=== PATIENT | female | born 1990 | race Caucasian/White ===

== ENCOUNTER 2017-02-12 15:46 | Outpatient (CLI) | payer OTHER ==
[~2017-02-12] VITALS: Ht 152.4 cm; Wt 86.0 kg
[~2017-02-12 15:46] MED LIST: ACET-2158 GTB; DOCO200C5 PO; FERR-55 PO; PREN1TAB62 PO
[2017-02-12 15:50] VITALS: Ht 152.4 cm; Wt 86.0 kg
--- NOTE | 2017-02-12 16:30 | RADRPT ---
PROCEDURE: US OB. CLINICAL INDICATION: Low TANVI , pain TECHNIQUE: Transabdominal views of the pelvis are available for review. COMPARISON: No prior studies are available for comparison. FINDINGS: There is a single intrauterine gestation in a vertex position. The heart rate is noted at 138 bpm. The placenta is posterior. The MVP measures 5.5 cm. RPTAT: AA IMPRESSION: Normal MVP. .Wang Mcpherson MD, MD Date Time Electronically viewed and signed by .Wang Mcpherson MD, on 02/12/2017 16:29 .S/
[2017-02-12 17:34] LABS: ADD UMIC YES; URINE BILIRUBIN (Dip) NEGATIVE (NEGATIVE); URINE BLOOD (Dip) NEGATIVE (NEGATIVE); URINE COLOR LT. YELLOW (YELLOW); URINE GLUCOSE (Dip) NEGATIVE (NEGATIVE); URINE KETONES (Dip) NEGATIVE (NEGATIVE); URINE LEUKOCYTE ESTERASE (Dip) 2+ (NEGATIVE); URINE NITRITE (Dip) NEGATIVE (NEGATIVE); URINE TOTAL PROTEIN (Dip) NEGATIVE (NEGATIVE); URINE UROBILINOGEN (Dip) 0.2 E.U./dL (0.1-1.0)
[2017-02-12] MEDS ORDERED: LACTATED RINGER'S 1,000 ML IV SCH (17:34)
[2017-02-12 17:48] LABS: BACTERIA,URINE FEW; SQUAMOUS EPITHELIAL CELL,UR MODERATE; URINE RBCS 0-2 /HPF (0)
--- NOTE | 2017-02-12 18:22 | CONS ---
Date/Time of Note Date/Time of Note DATE: 02/12/17 TIME: 18:15 Consultation Date/Type/Reason Admit Date/Time February 12, 2017 OB triage consult Reason for Consultation 4 para 1 premature entry with estimated date of confinement of June 10, 2017 Which makes her 23 weeks and 1 day today. . She came in complaining of low movement as well as low back pain On general examination she is a well-developed well-nourished lady midterm abdomen is soft basically no contractions her vital signs appears to be in normal limit with blood pressure 112/62 pulse rate 82 respiration 20 temperature 97.9 and heart rate running around 145 A urine analysis was performed which showed 2+ leukoesterase on examination this patient had slight left CVA tenderness on the ultrasound study the report was a single intrauterine gestation in vertex presentation heart tones 128 bpm and placenta was posterior MVP was 5.5 cm Laboratory Tests Test 02/12/17 16:03 Urine Color LT. YELLOW Urine Clarity CLEAR Urine pH 6.0 Urine Specific [place] 1.020 Urine Ketones NEGATIVE Urine Nitrite NEGATIVE Urine Bilirubin NEGATIVE Urine Urobilinogen 0.2 E.U./dL Urine Leukocyte Esterase 2+ Urine Microscopic RBC 0-2/HPF Urine Microscopic WBC 5-10/HPF Urine Squamous Epithelial Cells MODERATE Urine Bacteria FEW Urine Hemoglobin NEGATIVE Urine Glucose NEGATIVE% Urine Total Protein NEGATIVE Current Medications Medications (Trade) Dose Ordered Sig/Fernanda Route PRN Reason Start Time Stop Time Status Last Admin Dose Admin Lactated Ringer's (Lr) 1,000 ml @ 125 mls/hr Q8H IV 02/12/17 17:34 02/12/17 17:00 125 MLS/HR Constitutional: No chills, No diaphoresis, No disoriented, No febrile, No improved, No no complaints, No other, No poor po, No requiring IVF, No requiring O2 Respiratory: No cough, No no complaints, No other, No pain, No pleuritic pain, No shortness of breath, No sputum, No wheezing Cardiovascular: No chest pain, No edema, No lightheadedness, No no complaints, No orthopenea, No other, No palpitations, No paroxysmal nocturnal dyspnea Gastrointestinal: No blood, No constipation, No decreased appetite, No diarrhea , No flatus, No nausea, No no complaints, No other, No pain, No passing stool, No vomiting Genitourinary: flank pain (Left costovertebral angle tenderness), other (No dysuria), No bleeding, No discharge, No dysuria, No hematuria, No no complaints Musculoskeletal: No back pain, No bone/joint pain, No neck pain, No no complaints, No other, No restricted range of motion, No swelling Skin: No bruising, No erythema, No laceration, No no complaints, No other, No pruritis, No rash, No skin lesions Neurologic: No confusion, No dizziness, No focal-weakness, No headache, No no complaints, No other, No seizure, No syncope Additional Comments With these findings with the diagnosis of a urinary tract infection patient was given Macrobid tablet 100 mg #20 to be taken 1 every 12 hours Urine was sent for culture and sensitivity and she was advised to check with her physician for the result of the urinalysis and culture sensitivity for possible change of antibiotic Social History Smoking Status: Never smoker Exam/Review of Systems Results Results 24 hrs Laboratory Tests Test 02/12/17 16:03 Urine Color LT. YELLOW Urine Clarity CLEAR Urine pH 6.0 Urine Specific [place] 1.020 Urine Ketones NEGATIVE Urine Nitrite NEGATIVE Urine Bilirubin NEGATIVE Urine Urobilinogen 0.2 E.U./dL Urine Leukocyte Esterase 2+ H Urine Microscopic RBC 0-2 Urine Microscopic WBC 5-10 Urine Squamous Epithelial Cells MODERATE Urine Bacteria FEW Urine Hemoglobin NEGATIVE Urine Glucose NEGATIVE Urine Total Protein NEGATIVE Medications Medications Current Medications Lactated Ringer's (Lr) 1,000 ml @ 125 mls/hr Q8H IV Last administered on t 17:00; Admin Dose 125 MLS/HR; Start 02/12/17 at 17:34 DIMITRI ANAYA MD February 12, 2017 18:22
[2017-02-12] MEDS ORDERED: NITR-58 PO (18:27)
--- NOTE | 2017-02-12 19:36 | TRIAGE ---
OB Triage Datetime Report Generated by CPN: 02/12/2017 19:36 Datetime: 02/12/2017 16:00 Stage of : OB Triage Maternal Assessment Level of Consciousness: Fully Conscious DTR's/Clonus: DTRs 2+; No Clonus Headache: Denies Blurred Vision: No Respiratory Effort: Unlabored; Regular Rhythm; Equal Expansion Breath Sounds, Left: Clear and Equal Breath Sounds, Right: Clear and Equal Nausea/Vomiting: Denies RUQ Epigastric Pain: Denies Lower Extremities Edema: None Degree: None Upper Extremities Edema: None Degree: None Facial Edema: None Temperature Route: Axillary Fall Risk Assessment History of Falling: (0) No Secondary Diagnosis: (0) No Ambulatory Aid: (0) Bedrest/Nurse Assist IV Therapy: (0) No Gait: (0) Normal/Bedrest/Immobile Mental Status: (0) Oriented to Own Ability Fall Score: 0 Fall Risk Score Definition: No Risk: No action required Datetime: 02/12/2017 15:57 EGA: 23.1 Datetime: 02/12/2017 15:56 Time of Arrival: 02/12/2017 15:45 Arrived By: Ambulatory Arrived From: Home Chief Complaint: DECREASED FM, LOW BACK PAIN Movement: Present Contractions: Denies/Absent Rupture of Membranes: Denies Vaginal Bleeding: None Vaginal Discharge: Denies Recent Sexual Intercouse: Yes Abdominal Trauma: Not Applicable Patient Complaints: Cramping; Back Pain Time Provider Notified: 02/12/2017 16:00 Provider Notified: DR. MANE Initial Plan: NST, TANVI, UA
== END 2017-02-12 18:45 | disposition home or self-care (01) ==
LOC: OBT 15:46 → L-D 15:47 → OBT 18:45
PROVIDERS: ATTEND Obstetrics & Gynecology
DX: O23.42 Unspecified infection of urinary tract in pregnancy, second trimester (principal); O36.8120 Decreased fetal movements, second trimester, not applicable or unspecified; O26.891 Other specified pregnancy related conditions, first trimester; M54.5 Low back pain; Z3A.23 23 weeks gestation of pregnancy
CPT/HCPCS: 76815; 81001; 87086; 96372; J7120; Z7500; 81003; G0463

== ENCOUNTER 2017-04-30 14:44 | Inpatient (IN) | payer OTHER ==
[~2017-04-30] VITALS: Ht 152.4 cm; Wt 95.7 kg
[~2017-04-30 14:44] MED LIST changes: -ACET-2158 GTB; -DOCO200C5 PO; +NITR-58 PO
[2017-04-30 15:04] VITALS: Ht 152.4 cm; Wt 95.7 kg
[2017-04-30 15:05] VITALS: BP 132/80; PULSE 108
--- NOTE | 2017-04-30 16:00 | RADRPT ---
PROCEDURE: OB ultrasound for biophysical profile CLINICAL INDICATION: Decreased movements. Biophysical profile. . TECHNIQUE: Multiple sonographic images of the pelvis were obtained. Transabdominal view of the gr avid uterus are available for review. The images were reviewed on a PACS workstation. COMPARISON: 02/12/2017 FINDINGS: breathing movement = 2/2 tone = 2/2 motion = 2/2 TANVI = 2/2 Single intrauterine gestation is identified in cephalic position. heart rate is 141 bpm. Plac enta is posterior fundal without evidence for abruption or previa. TANVI measures 11.8 cm, within nor mal limits. IMPRESSION: 1. Single live intrauterine gestation. 2. Biophysical profile = 8. 3. TANVI = 11.8 cm. RPTAT: EE .Azael Boudreaux MD, MD Date Time Electronically viewed and signed by .Azael Boudreaux MD, on 04/30/2017 16:00 .R/
[2017-04-30 16:20] LABS: BASOPHILS % 0.1 % (0.0-2.0); EOSINOPHILS % 0.3 % (0.0-7.0); HEMATOCRIT 31.5 % (37.0-47.0); HEMOGLOBIN 10.9 g/dl (12.0-16.0); LYMPHOCYTES # 1.3 10^3/ul (0.8-2.9); LYMPHOCYTES % 12.5 % (15.0-51.0); MEAN CORPUSCULAR HEMOGLOBIN 30.2 pg (29.0-33.0); MEAN CORPUSCULAR HGB CONC 34.6 g/dl (32.0-37.0); MEAN CORPUSCULAR VOLUME 87.3 fl (82.0-101.0); MEAN PLATELET VOLUME 10.9 fl (7.4-10.4); MONOCYTE # 0.4 10^3/ul (0.3-0.9); MONOCYTES % 3.4 % (0.0-11.0); NEUTROPHIL # 8.8 10^3/ul (1.6-7.5); NEUTROPHILS % 83.1 % (39.0-77.0); PLATELET COUNT 238 10^3/UL (140-415); RED BLOOD COUNT 3.61 10^6/ul (4.20-5.40); RED CELL DISTRIBUTION WIDTH 13.5 % (11.5-14.5); WHITE BLOOD COUNT 10.5 10^3/ul (4.8-10.8)
[2017-04-30] MEDS: LACTATED RINGER'S 1,000 ML IV SCH (16:27)
[2017-04-30] MEDS ORDERED: TERBUTALINE 1 MG/ML INJ SC ONE ×2 (16:30→18:00)
[2017-04-30 16:43] LABS: ALBUMIN 3.8 g/dl (3.3-4.9); ALBUMIN/GLOBULIN RATIO 1.18; BILIRUBIN,INDIRECT 0.1 mg/dl (0-1.1); BILIRUBIN,TOTAL 0.1 mg/dl (0.2-1.3); CALCIUM 8.7 mg/dl (8.4-10.2); CREATININE 0.52 mg/dl (0.44-1.00); POTASSIUM 3.5 mmol/L (3.5-5.1)
[2017-04-30 17:14] LABS: ADD UMIC YES; UR ASCORBIC ACID 40 mg/dL (NEGATIVE); UR BILIRUBIN (Dip) NEGATIVE (NEGATIVE); UR BLOOD (Dip) NEGATIVE (NEGATIVE); UR CLARITY CLOUDY (CLEAR); UR COLOR AMBER (YELLOW); UR GLUCOSE (Dip) NEGATIVE (NEGATIVE); UR KETONES (Dip) 1+ mg/dL (NEGATIVE); UR LEUKOCYTE ESTERASE (Dip) TRACE Leu/ul (NEGATIVE); UR MUCUS MODERATE /HPF (NONE SEEN); UR NITRITE (Dip) NEGATIVE (NEGATIVE); UR RBC 4 /HPF (0-5); UR SPECIFIC GRAVITY (Dip) 1.035 (1.003-1.030); UR SQUAMOUS EPITHELIAL CELL FEW /HPF (FEW); UR TOTAL PROTEIN (Dip) 2+ mg/dl (NEGATIVE); UR UROBILINOGEN (Dip) NEGATIVE (NEGATIVE)
[2017-04-30 21:25] LABS: INR 1.04; PROTIME 13.6 Sec (12.2-14.2); PT RATIO 1.1
[2017-04-30 21:26] LABS: PARTIAL THROMBOPLASTIN TIME 28.3 Sec (25.0-35.0)
[2017-04-30] MEDS ORDERED: ACETAMINOPHEN 325 MG TAB PO ONE (22:00)
[2017-04-30] MEDS: BETAMET NA PHOS/AC(6 MG/ML) 5ML INJ IM SCH (22:55)
--- NOTE | 2017-05-01 00:38 | HP ---
Date/Time of Note Date/Time of Note DATE: 05/01/17 TIME: 00:20 OB - History Hx of Present Free Text/Dictation 26y. o A1 who had 3c/s at 34w1d wit c/o DFM for 1day and c/o Nausea and vomit and headache. EFM revealed UC q5min IV hydration done ,terbutaline X1 given BP 130-140/70-85 , previous BP was 104/69 with ++ protein in urine BPP 8/ TANVI 11.8 PIH lab wnl admitted to antepartum for observation and further evaluation for PIH 24hr urine collection for protein and creatinine ordered X2 bmz will be given paola consult Chief Complaint: DFM n&v headache Estimated Due Date: Jun 10, 2017 : 5 Para: 3 Spontaneous : 1 Therapeutic : 0 Care: Limited Care Ultrasounds: Normal mid trimester US Obstetrical Complications: Gestational Hypertension Medical Complications: None Past Family/Social History * Past Medical, Surgical, Family and Obstetric Histories reviewed from chart. Blood Type: O+ Rubella: immune RPR/VDRL: Negative GBS Status: Unknown HBsAG: Negative OB Admission Exam Vital Signs Vital Signs Vital Signs Date Time Temp Pulse Resp B/P Pulse Ox O2 Delivery O2 Flow Rate FiO2 04/30/17 15:05 98.1 108 132/80 Physical Exam HEENT: WNL Heart: Rhythm Normal Lungs: Clear, Equal Abdomen: WNL Extremities: Normal Reflexes: Normal Cervical Dilatation: other Effacement: Other Station: Other Membranes: Intact Amniotic Fluid: Unevaluable Heart Rate: 130's Accelerations: Accelerations Present Decelerations: No Decelerations Varibility: Moderate Contractions on Admission: < 5 Minutes Apart Intensity: Mild Last 72 hours Lab Results CBC & BMP 04/30/17 15:45 Liver Function Test 04/30/17 15:45 Alanine Aminotransferase (ALT/SGPT) 20 Albumin 3.8 Alkaline Phosphatase 166 H Aspartate Amino Transf (AST/SGOT) 14 L Direct Bilirubin 0.00 Total Protein 7.0 OB Assessment/Plan Reason for admission: other Other Assessment: IUP 34w1d gestational hypertension Plan: Other (as ordered) Other plan: periconsult NIK RAMON MD May 01, 2017 00:33
[2017-05-01] MEDS: LACTATED RINGER'S 1,000 ML IV SCH ×3 (00:56→23:35)
[2017-05-01] MEDS ORDERED: MAGNESIUM SULFATE 4 GM/100 ML 100 ML IV ONE (01:30)
[2017-05-01] MEDS: MAGNESIUM SULFATE 20 GM/500 ML 500 ML IV SCH ×2 (02:46→11:42)
[2017-05-01] MEDS ORDERED: ACETAMINOPHEN 325 MG TAB PO PRN (08:00)
[2017-05-01] MEDS: PRENATAL VITAMIN PO SCH (10:00)
[2017-05-01] MEDS: DOCUSATE SODIUM 100 MG CAP PO SCH (10:09)
--- NOTE | 2017-05-01 10:19 | QN ---
Documentation Comment resting in bed bp running in 130s/high 80s,no head ache no blurry vision no epigastric pain ,on mag 2gm q1 h, received btz first dose , Laboratory Tests Test 04/30/17 15:45 04/30/17 16:30 04/30/17 20:20 05/01/17 05:52 White Blood Count 10.510^3/ul Red Blood Count 3.6110^6/ul Hemoglobin 10.9g/dl Hematocrit 31.5% Mean Corpuscular Volume 87.3fl Mean Corpuscular Hemoglobin 30.2pg Mean Corpuscular Hemoglobin Concent 34.6g/dl Red Cell Distribution Width 13.5% Platelet Count 09688^3/UL Mean Platelet Volume 10.9fl Neutrophils % 83.1% Lymphocytes % 12.5% Monocytes % 3.4% Eosinophils % 0.3% Basophils % 0.1% Nucleated Red Blood Cells % 0.0/100WBC Neutrophils # 8.810^3/ul Lymphocytes # 1.310^3/ul Monocytes # 0.410^3/ul Eosinophils # 0.010^3/ul Basophils # 0.010^3/ul Nucleated Red Blood Cells # 0.010^3/ul Sodium Level 139mmol/L Potassium Level 3.5mmol/L Chloride Level 107mmol/L Carbon Dioxide Level 19mmol/L Anion Gap 17 Blood Urea Nitrogen 9mg/dl Creatinine 0.52mg/dl Glucose Level 82mg/dl Calcium Level 8.7mg/dl Total Bilirubin 0.1mg/dl Direct Bilirubin 0.00mg/dl Indirect Bilirubin 0.1mg/dl Aspartate Amino Transf (AST/SGOT) 14IU/L Alanine Aminotransferase (ALT/SGPT) 20IU/L Alkaline Phosphatase 166IU/L Total Protein 7.0g/dl Albumin 3.8g/dl Globulin 3.20g/dl Albumin/Globulin Ratio 1.18 Urine Color DONNA Urine Clarity CLOUDY Urine pH 5.0 Urine Specific [place] 1.035 Urine Ketones 1+mg/dL Urine Nitrite NEGATIVEmg/dL Urine Bilirubin NEGATIVEmg/dL Urine Urobilinogen NEGATIVEmg/dL Urine Leukocyte Esterase TRACELeu/ul Urine Microscopic RBC 4/HPF Urine Microscopic WBC 1/HPF Urine Squamous Epithelial Cells FEW/HPF Urine Calcium Oxalate Crystals MANY/HPF Urine Mucus MODERATE/HPF Urine Hemoglobin NEGATIVEmg/dL Urine Glucose NEGATIVEmg/dL Urine Total Protein 2+mg/dl Prothrombin Time 13.6Sec Prothrombin Time Ratio 1.1 INR International Normalized Ratio 1.04 Activated Partial Thromboplast Time 28.3Sec Fibrinogen 517.0mg/dl Uric Acid 4.1mg/dl Magnesium Level 4.1mg/dl Current Medications Medications (Trade) Dose Ordered Sig/Fernanda Route PRN Reason Start Time Stop Time Status Last Admin Dose Admin Lactated Ringer's (Lr) 1,000 ml @ 75 mls/hr [id number] IV 04/30/17 16:30 05/01/17 00:56 Terbutaline Sulfate (Brethine) 0.25 mg ONCE ONCE SC 04/30/17 16:30 04/30/17 16:31 DC 04/30/17 16:27 Terbutaline Sulfate (Brethine) 0.25 mg ONCE ONCE SC 04/30/17 18:00 04/30/17 18:01 DC 04/30/17 17:59 Prenat Multivit/ [place]/Iron/Folic Ac () 1 tab DAILY PO 05/01/17 09:00 Docusate Sodium (Colace) 100 mg DAILY PO 05/01/17 09:00 05/01/17 10:09 Acetaminophen (Tylenol Tab) 650 mg ONCE ONCE PO 04/30/17 22:00 04/30/17 22:05 DC 04/30/17 22:08 Betamethasone Acet/Betameth SodPhos 12 mg 12 mg Q24H IM 04/30/17 22:00 05/01/17 22:01 04/30/17 22:55 Magnesium Sulfate 100 ml @ 200 mls/hr ONCE ONCE IV 05/01/17 01:30 05/01/17 01:59 DC 05/01/17 02:01 Magnesium Sulfate (Magnesium Sulfate 20 Gm/500 ml) 500 ml @ 50 mls/hr Q10H IV 05/01/17 02:00 05/01/17 02:46 Acetaminophen (Tylenol Tab) 650 mg Q4H PRN PO PAIN AND OR ELEVATED TEMP 05/01/17 08:00 05/01/17 07:50 24 hours urine in progress ,paola consult requested EJRARDO PATE MD May 01, 2017 10:19
[2017-05-01] MEDS ORDERED: AL HYDROX/MG HYDROX/SIMETH 30 ML CUP PO PRN (17:00)
[2017-05-01] MEDS: BETAMET NA PHOS/AC(6 MG/ML) 5ML INJ IM SCH (22:29)
[2017-05-02] VITALS (12 sets, daily range): BP systolic 103–127; BP diastolic 57–71; PULSE 71–93; RESP 17–18
[2017-05-02 03:26] LABS: SCRET 0.52 mg/dl (0.44-1.00)
[2017-05-02] MEDS: PRENATAL VITAMIN PO SCH (09:24)
[2017-05-02] MEDS: DOCUSATE SODIUM 100 MG CAP PO SCH (09:25)
[2017-05-02] MEDS ORDERED: LACTATED RINGER'S 1,000 ML IV SCH (11:29)
[2017-05-02] MEDS ORDERED: METHYLERGONOVINE 0.2 MG INJ IM PRN ×3 (11:30→17:30)
[2017-05-02] MEDS ORDERED: OXYTOCIN 30 UNITS/LR 500 ML IV PRN ×3 (11:30→17:30)
[2017-05-02] MEDS ORDERED: CEFAZOLIN 2 GM/50 ML (PMX) 50 ML IV SCH (11:30)
[2017-05-02] MEDS ORDERED: CARBOPROST 250 MCG INJ IM PRN ×3 (11:30→17:30)
[2017-05-02] MEDS ORDERED: MISOPROSTOL 200 MCG TAB PR PRN ×3 (11:30→17:30)
[2017-05-02] MEDS ORDERED: OXYTOCIN 30 UNITS/LR 500 ML IV SCH ×2 (11:30→17:13)
[2017-05-02 12:00] LABS: BASOPHILS % 0.1 % (0.0-2.0); HEMATOCRIT 29.6 % (37.0-47.0); HEMOGLOBIN 10.1 g/dl (12.0-16.0); LYMPHOCYTES % 13.8 % (15.0-51.0); MEAN CORPUSCULAR HEMOGLOBIN 30.7 pg (29.0-33.0); MEAN CORPUSCULAR HGB CONC 34.1 g/dl (32.0-37.0); MEAN PLATELET VOLUME 10.6 fl (7.4-10.4); MONOCYTE # 0.5 10^3/ul (0.3-0.9); MONOCYTES % 6.5 % (0.0-11.0); NEUTROPHIL # 5.8 10^3/ul (1.6-7.5); PLATELET COUNT 219 10^3/UL (140-415); RED BLOOD COUNT 3.29 10^6/ul (4.20-5.40); WHITE BLOOD COUNT 7.4 10^3/ul (4.8-10.8)
[2017-05-02] MEDS ORDERED: MAGNESIUM SULFATE 4 GM/100 ML 100 ML IV SCH (12:00)
[2017-05-02 12:19] LABS: ALANINE AMINOTRANSFERASE 23 IU/L (13-69); ALBUMIN 3.6 g/dl (3.3-4.9); ALBUMIN/GLOBULIN RATIO 1.12; ALKALINE PHOSPHATASE 130 IU/L (42-121); ANION GAP 16 (8-16); ASPARTATE AMINO TRANSFERASE 12 IU/L (15-46); BILIRUBIN,INDIRECT 0.1 mg/dl (0-1.1); BILIRUBIN,TOTAL 0.1 mg/dl (0.2-1.3); BLOOD UREA NITROGEN 12 mg/dl (7-20); CALCIUM 9.1 mg/dl (8.4-10.2); CARBON DIOXIDE 24 mmol/L (21-31); CHLORIDE 104 mmol/L (97-110); CREATININE 0.62 mg/dl (0.44-1.00); GLUCOSE 109 mg/dl (70-220); INR 0.94; POTASSIUM 4.3 mmol/L (3.5-5.1); PROTIME 12.6 Sec (12.2-14.2); SODIUM 140 mmol/L (135-144); TOTAL PROTEIN 6.8 g/dl (6.1-8.1)
[2017-05-02 12:20] LABS: PARTIAL THROMBOPLASTIN TIME 26.6 Sec (25.0-35.0)
[2017-05-02] MEDS ORDERED: LACTATED RINGER'S 1,000 ML IV ONE (12:24)
[2017-05-02] MEDS ORDERED: METOCLOPRAMIDE 10 MG INJ IV ONE (12:30)
[2017-05-02] MEDS ORDERED: FAMOTIDINE 20 MG INJ IV ONE (12:30)
[2017-05-02] MEDS ORDERED: CITRIC ACID/NA CITRATE 30 ML CUP PO ONE (12:30)
[2017-05-02] MEDS ORDERED: ONDANSETRON 4 MG INJ IV ONE (12:30)
[2017-05-02] MEDS ORDERED: FENTAnyl 50 MCG/ML VIAL ONE (12:42)
[2017-05-02] MEDS ORDERED: morphine SULFATE/PF (10 MG/10 ML) INJ ONE (12:42)
[2017-05-02] MEDS ORDERED: TRIMETHOBENZAMIDE 100 MG/ML VIAL IM PRN (13:30)
[2017-05-02] MEDS ORDERED: KETOROLAC 30 MG INJ IV PRN (13:30)
[2017-05-02] MEDS ORDERED: NALOXONE (0.4 MG/ML) INJ IV PRN (13:30)
[2017-05-02] MEDS ORDERED: ONDANSETRON 4 MG INJ IV PRN (13:30)
[2017-05-02] MEDS ORDERED: NALBUPHINE HCL (10 MG/1 ML) INJ IV PRN (13:30)
[2017-05-02] MEDS ORDERED: morphine 4 MG/ML VIAL IV PRN ×2 (13:30)
[2017-05-02] MEDS ORDERED: EPHEDrine SULFATE 50 MG/5 ML SYG ONE (13:53)
--- NOTE | 2017-05-02 14:15 | OPR ---
Operative Report Planned Procedure Free Text/Dictation 26 years old female T1 PET 2 SAB 1 L3 admitted to [facility] as of April 30 from perinatology clinic diagnosed with severe PIH with proteinuria over 1200 mg in 24 hour patient kept under close observation placed on magnesium sulfate received steroids for enhancing baby's lung maturation since her symptoms did not relieve and developed neurological symptoms headache blurry vision, perinatologist recommended delivery at 34 weeks and 3 days due to severe PIH since patient has had 3 previous section she is being prepared to undergo repeat for the fourth time at 34 weeks3/7 she has been informed and counseled regarding the complication may arise from severe PIH including help syndrome and DIC as well as complication of the surgery including but not limited to bowel and bladder injury, wound hematoma wound infection also due to prematurity baby may be transferred to NICU. Procedure date May 02, 2017 Procedure(s) Repeat Performed by: JERARDO PATE MD Assisting provider: DIMITRI ANAYA MD Anesthesiologist: HELDER GARCIA MD Pre-procedure diagnosis 34 weeks and a half complicated with severe PIH history of 3 previous section Anesthesia Type: spinal Procedure Description Under satisfactory spinal [] anesthesia, the patient was prepped and draped and placed in a supine position, tilted to the left. Pfannenstiel incision was made , carried through the subcutaneous tissue. Bleeders brought under control with electrocautery. Fascia incised to the length of the incision. Rectus muscles from the fascia, divided midline. Peritoneum exposed, entered through a transverse incision. Exploration of abdomen revealed gravid uterus. Normal- appearing tubes and ovaries bladder flap was developed. Transverse incision was made in the lower segment of the uterus which was extremely thinned out amniotic sac ruptured. [Clear] amniotic fluid noted. [] Nasal oropharyngeal suction was performed. baby handed to the team for immediate attention. placenta was delivered manually intact. Uterine cavity was cleaned with wet sponge and drainage established. Uterus closed in 2 layers using [ Monocryl #1] in continuous fashion. Peritoneal cavity irrigated with warm saline. Sponge, needle and instrument count reported to be correct. Abdominal peritoneum closed with 2-0 chromic catgut [] continuously. Rectus muscle approximated with 2-0 chromic catgut []. Fascia closed with [#1 PDS], and skin closed with jay. Estimated blood loss 600 []mL. Urine bag contained [200]mL of clear urine patient tolerated procedure well transferred to recovery room in good condition Post-Procedure Findings: Live Baby girl 8 and 9 Complications: None Pt Condition post procedure: stable Physician Certification I, the undersigned physician, hereby certify that I have discussed the procedure described in this consent form with this patient (or the patient's legal sales representative livestock), including: * The risk and benefits of the procedure; * Any adverse reactions that may reasonably be expected to occur; * Any alternative efficacious methods of treatment which may be medically viable ; * The potential problems that may occur during recuperation; * Potential for blood transfusion and associated risks/benefits; and * Any research or economic interest I may have regarding this treatment. I further certify that the patient/legally responsible person was encouraged to ask question and that all questions were answered. JERARDO PATE MD May 02, 2017 14:11
[2017-05-02] MEDS: MAGNESIUM SULFATE 20 GM/500 ML 500 ML IV SCH ×2 (14:57→21:35)
[2017-05-02] MEDS: OXYTOCIN 30 UNITS/LR 500 ML IV SCH ×2 (17:13→20:24)
[2017-05-02] MEDS ORDERED: OXYCODONE/ACETAMINOPHEN (5/325) TAB PO PRN (17:30)
[2017-05-02] MEDS ORDERED: ACETAMINOPHEN/CODEINE #3 TAB PO PRN ×2 (17:30)
[2017-05-02] MEDS ORDERED: LANOLIN 7 GM TUBE TOP PRN (17:30)
[2017-05-02] MEDS ORDERED: CEFAZOLIN 1 GM/50 ML (PMX) 50 ML IVPB SCH ×2 (17:30)
[2017-05-02] MEDS: DIPHENHYDRAMINE 50 MG INJ IV PRN (17:52)
[2017-05-02] MEDS: LACTATED RINGER'S 1,000 ML IV SCH ×2 (21:43→23:58)
[2017-05-03] VITALS (18 sets, daily range): BP systolic 97–124; BP diastolic 52–74; PULSE 66–95; RESP 17–19
[2017-05-03] MEDS: DIPHENHYDRAMINE 50 MG INJ IV PRN (00:13)
[2017-05-03] MEDS: MAGNESIUM SULFATE 20 GM/500 ML 500 ML IV SCH (00:26)
[2017-05-03] MEDS: OXYTOCIN 30 UNITS/LR 500 ML IV SCH ×3 (03:27→11:47)
[2017-05-03 07:51] LABS: BASOPHILS % 0.1 % (0.0-2.0); EOSINOPHILS % 0.2 % (0.0-7.0); HEMATOCRIT 27.5 % (37.0-47.0); HEMOGLOBIN 9.3 g/dl (12.0-16.0); LYMPHOCYTES # 1.7 10^3/ul (0.8-2.9); LYMPHOCYTES % 19.2 % (15.0-51.0); MEAN CORPUSCULAR HEMOGLOBIN 30.1 pg (29.0-33.0); MEAN CORPUSCULAR HGB CONC 33.8 g/dl (32.0-37.0); MEAN PLATELET VOLUME 10.6 fl (7.4-10.4); MONOCYTE # 0.7 10^3/ul (0.3-0.9); NEUTROPHIL # 6.3 10^3/ul (1.6-7.5); NEUTROPHILS % 71.8 % (39.0-77.0); PLATELET COUNT 217 10^3/UL (140-415); RED BLOOD COUNT 3.09 10^6/ul (4.20-5.40); RED CELL DISTRIBUTION WIDTH 13.8 % (11.5-14.5); WHITE BLOOD COUNT 8.8 10^3/ul (4.8-10.8)
[2017-05-03] MEDS: SENNA/DOCUSATE NA (8.6MG/50MG) TAB PO SCH ×2 (08:37→20:41)
[2017-05-03] MEDS: LACTATED RINGER'S 1,000 ML IV SCH (11:48)
--- NOTE | 2017-05-03 15:02 | PN ---
Date/Time of Note Date/Time of Note DATE: 05/03/17 TIME: 14:58 OB Subjective Subjective Subjective Post day 1 Vital signs are stable blood pressures are running in 120s over 70s has no complaint of headache blurry vision or epigastric pain, her abdomen is soft good bowel sounds present extremities normal lower extremities reflexes within normal, magnesium sulfate discontinued ambulation encouraged with continue expecting management post PIH delivery JERARDO PATE MD May 03, 2017 15:02
[2017-05-03] MEDS: OXYCODONE/ACETAMINOPHEN (5/325) TAB PO PRN ×2 (17:05→23:12)
[2017-05-03] MEDS: IBUPROFEN 600 MG TAB PO SCH ×2 (18:01→23:41)
[2017-05-04] VITALS (7 sets, daily range): BP systolic 96–135; BP diastolic 56–88; PULSE 67–100; RESP 16–20
[2017-05-04] MEDS: IBUPROFEN 600 MG TAB PO SCH ×4 (05:33→23:27)
[2017-05-04] MEDS: SENNA/DOCUSATE NA (8.6MG/50MG) TAB PO SCH ×2 (08:45→20:30)
[2017-05-04] MEDS: OXYCODONE/ACETAMINOPHEN (5/325) TAB PO PRN (09:04)
--- NOTE | 2017-05-04 13:58 | PN ---
Date/Time of Note Date/Time of Note DATE: 05/04/17 TIME: 13:57 OB Subjective Subjective Subjective April Post C section day 2 Doing Well Afebrile Ambulatory Chest Clear Breasts are soft , Nipples are intact Abdomen is soft Fundus is firm Moderate amount of lochia Incision is clean ,No evidence of infection No calf tenderness No ankle edema Current Medications Medications (Trade) Dose Ordered Sig/Fernanda Route PRN Reason Start Time Stop Time Status Last Admin Dose Admin Lactated Ringer's (Lr) 1,000 ml @ 75 mls/hr [id number] IV 04/30/17 16:30 05/02/17 13:28 DC 05/01/17 23:35 Terbutaline Sulfate (Brethine) 0.25 mg ONCE ONCE SC 04/30/17 16:30 04/30/17 16:31 DC 04/30/17 16:27 Terbutaline Sulfate (Brethine) 0.25 mg ONCE ONCE SC 04/30/17 18:00 04/30/17 18:01 DC 04/30/17 17:59 Prenat Multivit/ [place]/Iron/Folic Ac () 1 tab DAILY PO 05/01/17 09:00 05/02/17 11:35 DC 05/02/17 09:24 Docusate Sodium (Colace) 100 mg DAILY PO 05/01/17 09:00 05/02/17 11:35 DC 05/02/17 09:25 Acetaminophen (Tylenol Tab) 650 mg ONCE ONCE PO 04/30/17 22:00 04/30/17 22:05 DC 04/30/17 22:08 Betamethasone Acet/Betameth SodPhos 12 mg 12 mg Q24H IM 04/30/17 22:00 05/01/17 22:01 DC 05/01/17 22:29 Magnesium Sulfate 100 ml @ 200 mls/hr ONCE ONCE IV 05/01/17 01:30 05/01/17 01:59 DC 05/01/17 02:01 Magnesium Sulfate (Magnesium Sulfate 20 Gm/500 ml) 500 ml @ 50 mls/hr Q10H IV 05/01/17 02:00 05/01/17 14:06 DC 05/01/17 11:42 Acetaminophen (Tylenol Tab) 650 mg Q4H PRN PO PAIN AND OR ELEVATED TEMP 05/01/17 08:00 05/02/17 11:35 DC 05/01/17 07:50 Al Hydrox/Mg Hydrox/ Simethicone 30 ml 30 ml Q6H PRN PO GASTROINTESTINAL UPSET 05/01/17 17:00 05/02/17 11:35 DC 05/01/17 16:45 Lactated Ringer's 1,000 ml @ 125 mls/hr Q8H IV 05/02/17 11:29 05/02/17 17:23 DC 05/02/17 11:59 Cefazolin Sodium/ Dextrose 50 ml @ 100 mls/hr ONCE IV 05/02/17 11:30 05/02/17 17:23 DC Oxytocin/Lactated Ringer's 500 ml @ 125 mls/hr ONCE IV 05/02/17 11:30 05/02/17 17:23 DC 05/02/17 14:20 Oxytocin/Lactated Ringer's 500 ml @ 0 mls/hr ONCE PRN IV For Hemorrhage Management 05/02/17 11:30 05/02/17 17:23 DC Methylergonovine Maleate (Methergine) 0.2 mg ONCE PRN IM VAGINAL BLEEDING 05/02/17 11:30 05/02/17 17:23 DC Carboprost Tromethamine (Hemabate) 250 mcg ONCE PRN IM VAGINAL BLEEDING 05/02/17 11:30 05/02/17 17:23 DC Misoprostol 1000 mcg 1,000 mcg ONCE PRN [place] VAGINAL BLEEDING 05/02/17 11:30 05/02/17 17:23 DC Magnesium Sulfate 100 ml @ 200 mls/hr ONCE IV 05/02/17 12:00 05/02/17 12:29 DC 05/02/17 14:20 Magnesium Sulfate 500 ml @ 50 mls/hr Q10H IV 05/02/17 11:35 05/03/17 16:52 DC 05/03/17 00:26 Lactated Ringer's (Lr) 1,000 ml @ 1,000 mls/hr Q1H ONCE IV 05/02/17 12:24 05/02/17 13:23 DC Ondansetron HCl (Zofran Inj) 4 mg pre-procedure ONCE IV 05/02/17 12:30 05/02/17 12:31 DC 05/02/17 12:35 Citric Acid/ Sodium Citrate (Bicitra) 30 ml PRE-OP ONCE PO 05/02/17 12:30 05/02/17 12:31 DC 05/02/17 12:33 Famotidine (Pepcid Iv) 20 mg pre-procedure ONCE IV 05/02/17 12:30 05/02/17 12:31 DC 05/02/17 12:38 Metoclopramide HCl (Reglan) 10 mg ONCE ONCE IV 05/02/17 12:30 05/02/17 12:31 DC 05/02/17 12:40 Morphine Sulfate (Duramorph) 10 mg STK-MED ONCE .ROUTE 05/02/17 12:42 05/02/17 12:43 DC Fentanyl (Sublimaze) 100 mcg STK-MED ONCE .ROUTE 05/02/17 12:42 05/02/17 12:43 DC Naloxone HCl (Narcan) 0.1 mg Q2M PRN IV FOR RESP RATE 8 OR LESS 05/02/17 13:30 05/02/17 17:23 DC Ketorolac Tromethamine (Toradol) 30 mg Q6H PRN IV PAIN 05/02/17 13:30 05/03/17 13:29 DC 05/03/17 12:02 Morphine Sulfate (morphine) 2 mg Q3H PRN IV PAIN LEVEL 1-5 05/02/17 13:30 05/03/17 13:29 DC Morphine Sulfate (morphine) 4 mg Q3H PRN IV PAIN LEVEL 6-10 05/02/17 13:30 05/03/17 13:29 DC Diphenhydramine HCl (Benadryl) 25 mg Q6H PRN IV ITCHING 05/02/17 13:30 05/03/17 13:29 DC 05/03/17 00:13 Nalbuphine HCl (Nubain) 5 mg ONCE PRN IV ITCHING 05/02/17 13:30 05/03/17 13:29 DC Ondansetron HCl (Zofran Inj) 4 mg Q6H PRN IV NAUSEA AND/OR VOMITING 05/02/17 13:30 05/03/17 13:29 DC Trimethobenzamide HCl (Tigan) 200 mg Q6H PRN IM NAUSEA AND/OR VOMITING 05/02/17 13:30 05/03/17 13:29 DC Miscellaneous Information (* Miscellaneous Pharmacy Order) Duramorph: 0.2 mg Spi... GIVEN XX 05/02/17 13:30 05/02/17 17:23 DC Ephedrine Sulfate 50 mg STK-MED ONCE .ROUTE 05/02/17 13:53 05/02/17 13:54 DC Acetaminophen/ Codeine Phosphate (Tylenol No.3) 1 tab Q4H PRN PO PAIN LEVEL 4-6 05/02/17 17:30 Acetaminophen/ Codeine Phosphate (Tylenol No.3) 2 tab Q4H PRN PO PAIN LEVEL 7-10 05/02/17 17:30 Oxycodone/ Acetaminophen (Percocet (5/ 325)) 1 tab Q4H PRN PO PAIN LEVEL 4-6 05/02/17 17:30 Oxycodone/ Acetaminophen (Percocet (5/ 325)) 2 tab Q4H PRN PO PAIN LEVEL 7-10 05/02/17 17:30 05/04/17 09:04 Ibuprofen (Motrin) 600 mg Q6 PO 05/03/17 18:00 05/04/17 12:52 Simethicone (Mylicon) 160 mg Q8H PRN PO DISTENSION/GAS/BLOATING 05/02/17 17:30 Senna/Docusate Sodium (Senokot-S) 1 tab BID PO 05/03/17 09:00 05/04/17 08:45 Lanolin ([id number]-Y-Ulrftg) 1 applic BEDSIDE MEDICATION PRN TOP BEDSIDE FOR POLO TO NIPPLES 05/02/17 17:30 05/02/17 17:54 Diphtheria/ Tetanus/Acell Pertussis 0.5 ml 0.5 ml ONCE ONCE IM* 05/05/17 09:00 05/05/17 09:01 Oxytocin/Lactated Ringer's 500 ml @ 0 mls/hr ONCE PRN IV For Hemorrhage Management 05/02/17 17:30 Methylergonovine Maleate (Methergine) 0.2 mg ONCE PRN IM VAGINAL BLEEDING 05/02/17 17:30 Carboprost Tromethamine (Hemabate) 250 mcg ONCE PRN IM VAGINAL BLEEDING 05/02/17 17:30 Misoprostol 1000 mcg 1,000 mcg ONCE PRN [place] VAGINAL BLEEDING 05/02/17 17:30 Cefazolin Sodium 50 ml @ 100 mls/hr ONCE IVPB 05/02/17 17:30 05/02/17 17:59 DC 05/02/17 21:44 Oxytocin/Lactated Ringer's 500 ml @ 125 mls/hr Q4H IV 05/02/17 17:13 05/03/17 16:54 DC 05/03/17 11:47 Lactated Ringer's 1,000 ml @ 125 mls/hr Q8H IV 05/02/17 17:13 05/03/17 16:54 DC 05/03/17 11:48 Oxytocin/Lactated Ringer's 500 ml @ 0 mls/hr ONCE PRN IV For Hemorrhage Management 05/02/17 17:30 05/02/17 17:30 DC Methylergonovine Maleate (Methergine) 0.2 mg ONCE PRN IM VAGINAL BLEEDING 05/02/17 17:30 05/02/17 17:30 DC Carboprost Tromethamine (Hemabate) 250 mcg ONCE PRN IM VAGINAL BLEEDING 05/02/17 17:30 05/02/17 17:30 DC Misoprostol 1000 mcg 1,000 mcg ONCE PRN [place] VAGINAL BLEEDING 05/02/17 17:30 05/02/17 17:30 DC Cefazolin Sodium 50 ml @ 100 mls/hr ONCE IVPB 05/02/17 17:30 05/02/17 17:30 DC Oxytocin/Lactated Ringer's 500 ml @ 125 mls/hr Q4H IV 05/02/17 17:13 05/02/17 17:27 DC New born is doing well, Breast feeding DIMITRI ANAYA MD May 04, 2017 13:58
[2017-05-05 04:30] VITALS: BP 120/72; PULSE 96; RESP 18
[2017-05-05] MEDS: IBUPROFEN 600 MG TAB PO SCH ×3 (05:32→18:00)
[2017-05-05] MEDS: OXYCODONE/ACETAMINOPHEN (5/325) TAB PO PRN ×2 (05:32→16:50)
[2017-05-05 08:40] VITALS: BP 110/66; PULSE 87; RESP 17
[2017-05-05] MEDS: SENNA/DOCUSATE NA (8.6MG/50MG) TAB PO SCH (08:59)
[2017-05-05] MEDS ORDERED: DIPHTH/TET/ACEL PERTUSS (ADULT) 0.5 ML VIAL IM* ONE (09:00)
--- NOTE | 2017-05-05 11:51 | DS ---
Date/Time of Note Date/Time of Note DATE: 05/05/17 TIME: 11:45 Discharge Summary Admission/Discharge Info Admit Date/Time Apr 30, 2017 at 21:20 Discharge Date/Time May 05, 2017 at 11/40 a.m. Discharge Diagnosis Post primary date 3 for -induced hypertension at 34 weeks and a half gestation Patient Condition: Good Procedures Primary for -induced hypertension Hx of Present Illness 34-1/2 weeks complicated with moderate to severe PIH delivery recommended by the perinatology Hospital Course Post satisfactory recovery old blood pressures within normal no neurological symptoms . Home Meds Reported Medications Nitrofurantoin Monohyd Macrocr* (Macrobid*) 100 Mg Capsr, 100 MG PO BID, CAP 02/12/17 Ferrous Sulfate* (Ferrous Sulfate*) 325 Mg Tablet, 325 MG PO DAILY 08/04/13 Vit-Iron Fumarate-FA ( Vitamin Tablet) 1 Each Tablet, 1 EACH PO DAILY 08/04/13 Follow-up Plan Post follow-up instructions given recommended to make appointment to be seen at the clinic in 4 days Primary Care Provider Not On Staff Doctor Time spent on discharge: < 30 minutes JERARDO PATE MD May 05, 2017 11:51
== END 2017-05-05 19:00 | disposition home or self-care (01) | DRG 766 ==
LOC: OBT 14:44 → L-D 14:45 → OBT 21:20 → OBG 21:20 → UNDOADMIN 21:20 → L-D 05-02 11:20 → PP1 05-02 16:53
PROVIDERS: ADMIT Obstetrics & Gynecology; ATTEND Obstetrics & Gynecology
PROC: 10D00Z1 Extraction of Products of Conception, Low, Open Approach (ICD-10-PCS; principal; 2017-05-02 13:15)
DX: O13.3 Gestational [pregnancy-induced] hypertension without significant proteinuria, third trimester (principal); Z37.0 Single live birth; O34.219 Maternal care for unspecified type scar from previous cesarean delivery; Z3A.34 34 weeks gestation of pregnancy
CPT/HCPCS: 36415; 76818; 80053; 81001; 82575; 83735; 84156; 84560; 85025; 85384; 85610; 85730; 86592; 86850; 86900; 86901; 86920; 87340; 88307; 90715; 94760; 96360; 96361; 96372; 99464; G0463; J0690; J0702; J1200; J1885; J2274; J2405; J2590; J2765; J3010; J3105; J3475; J7120